=== PATIENT | female | born 1965 | race Caucasian/White ===

== ENCOUNTER → 2019-08-03 14:13 | Outpatient (BNVA) | payer MEDICARE, OTHER, SELFPAY | PROVIDERS: Family Provider Electrodiagnostic Medicine; PCP Electrodiagnostic Medicine; Visit Provider Internal Medicine Rheumatology | DX: L40.50 Arthropathic psoriasis, unspecified (principal); Z79.899 Other long term (current) drug therapy; Z11.59 Encounter for screening for other viral diseases; M46.90 Unspecified inflammatory spondylopathy, site unspecified; M85.80 Other specified disorders of bone density and structure, unspecified site; M19.90 Unspecified osteoarthritis, unspecified site; M81.0 Age-related osteoporosis without current pathological fracture; Z72.89 Other problems related to lifestyle | CPT/HCPCS: 36415; 80076; 82306; 82565; 85025; 85651; 86140; 86704; 99214 ==

== ENCOUNTER 2019-08-31 12:28 | Outpatient (CLI) | payer MEDICARE, OTHER, SELFPAY ==
--- NOTE | 2019-08-31 13:00 | XR_ITS ---
WS: [id number] PROCEDURE: XR chest 2V* [id number] CLINICAL INFORMATION: psoriatic arthritis COMPARISON: May 25, 2012 FINDINGS: Heart: Normal cardiac silhouette. Lungs: Lungs are clear. No consolidation or pleural fluid. Bones: Normal visualized bony structures. XR/XR chest 2V* [id number] IMPRESSION: Normal chest
--- NOTE | 2019-08-31 13:00 | XR_ITS ---
WS: [id number] PELVIS TECHNIQUE: 1 view(s) of the pelvis CLINICAL INFORMATION: psoriatic arthritis COMPARISON: None. 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 Mild degenerativ e arthritis both hips with joint space narrowing. Mild disc bulging lower lumbar spine. Normal SI juan nts. XR/XR pelvis 1-2V* [id number] IMPRESSION: 1. 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 2. Mild degenerative arthritis both hips with joint space narrowing. 3. Mild disc space narrowing L4-L5 and L5-S1.
--- NOTE | 2019-08-31 13:15 | XR_ITS ---
WS: [id number] HAND LEFT TECHNIQUE: 3 views of the left hand CLINICAL INFORMATION: psoriatic arthritis COMPARISON: None. FINDINGS: Normal metacarpals. Normal MCP joint. Metacarpal heads are normal in appearance. Normal PIP and DIP j oints. No evidence of acute fracture or dislocation. Radiocarpal joint: Normal. Carpal bones: Normal. XR/XR hand LT min 3V* [id number] IMPRESSION: Normal left hand.
--- NOTE | 2019-08-31 13:45 | XR_ITS ---
WS: [id number] HAND RIGHT TECHNIQUE: 3 views of the right hand CLINICAL INFORMATION: psoriatic arthritis COMPARISON: None. FINDINGS: Normal metacarpals. Normal MCP joint. Metacarpal heads are normal in appearance. Normal PIP and DIP j oints. No evidence of acute fracture or dislocation. Radiocarpal joint: Normal. Carpal bones: Normal. XR/XR hand RT min 3V* [id number] IMPRESSION: Normal right hand.
--- NOTE | 2019-08-31 14:15 | XR_ITS ---
WS: [id number] FOOT LEFT TECHNIQUE: 3 views of the left foot CLINICAL INFORMATION: psoriatic arthritis COMPARISON: None. FINDINGS: No evidence of acute fracture or dislocation. Normal tarsal metatarsal alignment. Normal calcaneus. N ormal visualized talar dome. No acute findings. Plantar calcaneal spurring. Achilles insertion enthes ophyte. XR/XR foot LT min 3V* [id number] IMPRESSION: Unremarkable left foot
--- NOTE | 2019-08-31 14:45 | XR_ITS ---
WS: [id number] FOOT RIGHT TECHNIQUE: 3 views of the right foot CLINICAL INFORMATION: psoriatic arthritis COMPARISON: None. FINDINGS: No evidence of acute fracture or dislocation. Normal tarsal metatarsal alignment. Normal calcaneus. N ormal visualized talar dome. No acute findings. Plantar and Achilles calcaneal spurring. No erosive c hanges. XR/XR foot RT min 3V* [id number] IMPRESSION: Unremarkable right foot.
--- NOTE | 2019-08-31 15:15 | XR_ITS ---
WS: [id number] SCREENING DEXA SCAN [facility] CLINICAL INFORMATION: osteoporosis COMPARISON: FINDINGS: The L1-L4 bone mineral density measures 1.013 g/cm2. This corresponds to a T score score of -1.4 and Z score of -1.3. Left femoral neck bone mineral density measures 0.796 g/cm2. This corresponds to a T score of -1.7 an d Z score of -1.5. Right femoral neck bone mineral density measures 0.767 g/cm2. This corresponds to a T score -1.9of an d Z score of -1.8. Mean femoral neck bone mineral density measures 0.781 g/cm2. This corresponds to a T score of -1.8 an d Z score of -1.6. XR/XR DEXA axial skeleton* [id number] IMPRESSION: Osteopenia Patient's FRAX calculated 10 year probability for major osteoporotic fracture i s 6.2 % and osteoporotic hip fracture is 0.5%.
== END 2019-08-31 12:29 | disposition home or self-care (01) ==
LOC: RADWPI 12:34
PROVIDERS: Family Provider Electrodiagnostic Medicine; PCP Electrodiagnostic Medicine; Visit Provider Internal Medicine Rheumatology
DX: M81.0 Age-related osteoporosis without current pathological fracture (principal); L40.50 Arthropathic psoriasis, unspecified; M85.89 Other specified disorders of bone density and structure, multiple sites; M16.0 Bilateral primary osteoarthritis of hip
CPT/HCPCS: 71046; 72170; 73130; 73630; 77080

== ENCOUNTER → 2019-12-06 13:34 | Outpatient (BNVA) | payer MEDICARE, OTHER, SELFPAY | PROVIDERS: Family Provider Electrodiagnostic Medicine; PCP Electrodiagnostic Medicine; Visit Provider Internal Medicine Rheumatology | DX: L40.50 Arthropathic psoriasis, unspecified (principal); Z79.899 Other long term (current) drug therapy; L40.0 Psoriasis vulgaris; M85.80 Other specified disorders of bone density and structure, unspecified site; M46.90 Unspecified inflammatory spondylopathy, site unspecified; M19.90 Unspecified osteoarthritis, unspecified site | CPT/HCPCS: 36415; 80076; 82565; 85025; 85651; 86140; 99214 ==

== ENCOUNTER → 2020-05-04 14:16 | Outpatient (BNVA) | payer MEDICARE, OTHER, SELFPAY | PROVIDERS: Family Provider Electrodiagnostic Medicine; PCP Electrodiagnostic Medicine; Visit Provider Internal Medicine Rheumatology | DX: L40.50 Arthropathic psoriasis, unspecified (principal); L40.0 Psoriasis vulgaris; Z79.899 Other long term (current) drug therapy; M85.80 Other specified disorders of bone density and structure, unspecified site; M46.90 Unspecified inflammatory spondylopathy, site unspecified; M47.896 Other spondylosis, lumbar region | CPT/HCPCS: 36415; 80076; 82565; 85025; 86140; 99214 ==

== ENCOUNTER → 2020-09-06 11:49 | Outpatient (BNVA) | payer MEDICARE, OTHER, SELFPAY | PROVIDERS: Family Provider Electrodiagnostic Medicine; PCP Electrodiagnostic Medicine; Visit Provider Internal Medicine Rheumatology | DX: L40.50 Arthropathic psoriasis, unspecified (principal); L40.0 Psoriasis vulgaris; Z79.899 Other long term (current) drug therapy; M46.90 Unspecified inflammatory spondylopathy, site unspecified; M15.9 Polyosteoarthritis, unspecified; M47.896 Other spondylosis, lumbar region; G47.00 Insomnia, unspecified; Z71.89 Other specified counseling; Z96.612 Presence of left artificial shoulder joint | CPT/HCPCS: 36415; 80076; 82565; 85025; 86140; 99214 ==

== ENCOUNTER → 2020-11-15 13:01 | Outpatient (BNVA) | payer MEDICARE, OTHER, SELFPAY | PROVIDERS: Family Provider Electrodiagnostic Medicine; PCP Electrodiagnostic Medicine; Visit Provider Internal Medicine Rheumatology | DX: Z79.899 Other long term (current) drug therapy (principal); L40.50 Arthropathic psoriasis, unspecified; M46.90 Unspecified inflammatory spondylopathy, site unspecified | CPT/HCPCS: 36415; 80076; 82565; 85025; 86140 ==

== ENCOUNTER → 2021-03-02 10:00 | Outpatient (BNVA) | payer MEDICARE, OTHER, SELFPAY | PROVIDERS: Family Provider Electrodiagnostic Medicine; PCP Electrodiagnostic Medicine; Visit Provider Otolaryngology | DX: L40.0 Psoriasis vulgaris (principal) | CPT/HCPCS: 87635 ==

== ENCOUNTER 2021-03-08 08:24 | Day surgery (SDC) | payer MEDICARE, OTHER, SELFPAY ==
[2021-03-07 10:26] VITALS: BMI 31.8
[2021-03-08] VITALS (10 sets, daily range): BP systolic 123–158; BP diastolic 69–98; PULSE 70–97; RESP 13–18; TEMP 36.2–36.4; O2SAT 97–100
--- NOTE | 2021-03-08 09:20 | W.PM.OPSUD ---
Surgery/Procedure H&P Update DATE OF PROCEDURE: March 08, 2021 DATE H&P PERFORMED: 02/27/21 H&P UPDATE INFORMATION: I have reviewed H&P completed within last 30 days, I have examined patient prior to procedure and No changes to prior documentation PREOP DIAGNOSIS: Left neck cyst PLANNED PROCEDURE: Operation Date: 03/08/21 10:30 Proposed Procedures p Excision Left neck Cyst 98018 R22.1(Left) - Julian Calero MD
[2021-03-08] MEDS: sodium chloride 0.9% 1,000 ML 30 ML IV (09:32)
--- NOTE | 2021-03-08 10:30 | ANES.PREANE2 ---
Pre-Anesthetic Assessment Pre-Anesthetic Assessment: Height/Weight: Height 1.6 m Weight 81.647 kg Temp Pulse Resp BP Pulse Ox 97.4 F L 83 16 158/98 98 03/08/21 09:10 03/08/21 09:10 03/08/21 09:10 03/08/21 09:10 03/08/21 09:10 Preop Diagnosis: Left neck cyst Proposed Procedure: Operation Date: 03/08/21 10:30 Proposed Procedures p Excision Left neck Cyst 14712 R22.1(Left) - Julian Calero MD Was Beta Marleni taken within 24 hours: N/A Was Clonidine taken within 24 hours: N/A Last intake: Intake Last Liquid Date 03/07/21 Last Liquid Time 22:00 Last Solid Date 03/07/21 Last Solid Time 22:00 Social: Social History: No alcohol and No tobacco Exam: Pre-Anes Outpt Exam: alert, oriented x 3, clear to auscultation bilaterally and regular rate & rhythm Airway: Submandibular: WNL Cervical ROM: WNL MP: 1 Dentition: Full History/ROS: No significant complaints Pulmonary: Pulmonary: None reported CV/HEM: CV/HEM: HTN : : None reported Hepatic: Hepatic: None reported GI: GI: None reported Metabolic: Metabolic: None reported Musc/skel: Comments: Psoriatic arthritis Osteopenia Neuropsych: Neuropsych: None reported Anesthetic Plan: ASA status: 2 Anesthesia: Anesthesia Evaluation and General Risk of > 500 ml blood loss (7ml/kg in children): No Medications/Allergies Current Medications: Current Medications Generic Name Dose Route Start Last Admin Trade Name Freq PRN Reason Stop Dose Admin Sodium Chloride 1,000 mls @ 30 ml s/hr 03/08/21 08:45 03/08/21 09:32 Sodium Chloride 0.9% IV 03/09/21 08:44 30 mls/hr .Q24H XOCHILT Administration PFSH Anesthesia PFSH: Medical History 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
--- NOTE | 2021-03-08 11:39 | SUR.OPER ---
5.1ML OF 2% LIDOCAINE CARPALS WAS USED ON THE LEFT NECK.
[2021-03-08] MEDS: neomycin-poly-bacitracin oint 28 gm 1 APPLIC TOPICAL (12:00)
--- NOTE | 2021-03-08 12:03 | P.OP_ITS ---
Operative Report Date of procedure: March 08, 2021 Pre-op Diagnosis: Left neck cyst Post-op diagnosis: same Post-op Findings: Patient with a scarred ruptured cyst and surrounding thick skin scar. Procedure Done: Excision of left neck cyst and scar with multilayer intermediate repair. Incision 5 cm x 2 cm. Specimens removed/disposition: Ruptured left neck cyst with surrounding scarred tissue. Pathology: Sent for permanent section diagnosis. Surgeon: Julian Calero Anesthesia: General and Local Estimated blood loss (mL): 10 Complications: No complications encountered. Findings: Patient has had a cyst of the left neck for years and has had treatment for it in the past. The cyst has recurred and the skin is very sc arred and thickened surrounding it. Patient wishes to have it excised to stop the recurrent infections. Condition: stable Disposition: PACU Brief History: 55-year-old female patient with a recurrent left neck cyst in spite of previous treatment. Continues to have inflammation and further rupture and drainage and causing thick scar. Patient is being brought to the operating room at this time to undergo excision of this lesion or cyst with surrounding scar with intermediate repair. The procedure its risks and complications have been explained in detail. These risks include bleeding infection numbness scarring swelling bruising recurrence need for additional treatment and more serious risk such as heart attack or stroke or not surviving the surgery. With these things understood informed consent was granted. Procedure: Description of procedure: The patient was placed on the operating table in the supine position. Adequate general endotracheal tube anesthesia was obtained. A timeout was accomplished identifying the patient date of plan procedure allergies fire risk and medications given. With all in agreement the procedure continued. The patient's left neck was cleansed with alcohol and shahab the site was noted. A total of 5.1 mL of 2% Xylocaine with 1-100,000 epinephrine was used to infiltrate the skin excision area in a fusiform pattern and down to the subcutaneous tissue deep to the cyst. Then the patient was prepped with ChloraPrep and draped in usual fashion. A marking pen was then used to outline a fusiform excision pattern measuring 5 x 2 cm. This incorporated the cyst and scar to normal skin. The cut mode of a needle tip Bovie on very low power was used to create the skin incision. Then the coagulation mode was used to cut down to the deeper subcutaneous fat layer and then in that plane the lesion with the cyst and the surrounding skin was excised. Hemostasis was attained with the cautery and bipolar cautery. Undermining was then accomplished anteriorly and posteriorly for about 2 cm in both directions. Then the subcutaneous fat layer was closed with interrupted 4-0 chromic suture. The subcutaneous layer was then closed with interrupted 4-0 chromic. Then the skin was closed with a running subcutaneous 5-0 nylon suture with 1 skin bridge for easy removal. The area was cleansed. Pressure was applied for several minutes. Then Neosporin ointment was applied followed by a large Band-Aid. Patient was then returned to anesthesia for wake-up and extubation. She tolerated the procedure well and estimated blood loss of 10 mL or less and arrived in recovery in stable condition.
--- NOTE | 2021-03-08 14:31 | ANE.PACU2 ---
Inpatient post-anesthesia follow up: Airway intact: Yes Vital signs: Temperature 97.5 F Pulse Rate 70 Respiratory Rate 16 Blood Pressure 123/69 Pulse Oximetry 97 Oxygen Delivery Me thod Room Air Oxygen Flow Rate Fraction of Inspir ed Oxygen Hydration adequate: Yes Nausea and vomiting: No Pain level: 2 Mental status: Baseline
== END 2021-03-08 13:13 | disposition home or self-care (01) ==
PROVIDERS: PCP Electrodiagnostic Medicine; Visit Provider Otolaryngology
PROC: (CPT 11426; principal; 2021-03-08 10:20)
DX: L72.0 Epidermal cyst (principal); I10 Essential (primary) hypertension; L40.50 Arthropathic psoriasis, unspecified; M81.0 Age-related osteoporosis without current pathological fracture; Z79.899 Other long term (current) drug therapy; Z82.49 Family history of ischemic heart disease and other diseases of the circulatory system; Z83.3 Family history of diabetes mellitus
CPT/HCPCS: 11426; 12042; 88307; J1100; J2405; J3010; J3490; J7030

== ENCOUNTER 2024-06-29 15:07 | Outpatient (CLI) | payer MEDICARE, OTHER, SELFPAY ==
--- NOTE | 2024-06-29 15:17 | XR_ITS ---
WS: [id number] SCREENING DEXA SCAN [facility] CLINICAL INFORMATION: postmenopausal COMPARISON: 2019 FINDINGS: The L1-L4 bone mineral density measures 0.970 g/cm2. This corresponds to a T score score of -1.8 and Z score of -0.9. Left femoral neck bone mineral density measures 0.717 g/cm2. This corresponds to a T score of -2.3 and Z score of -1.6. Right femoral neck bone mineral density measures 0.724 g/cm2. This corresponds to a T score -2.3of and Z score of -1.6. Mean femoral neck bone mineral density measures 0.721 g/cm2. This corresponds to a T score of -2.3 and Z score of -1.6. XR/XR DEXA axial skeleton* [id number] IMPRESSION: Osteopenia lumbar spine. Osteopenia femoral necks. Patient's FRAX calculated 10 year probability for major osteoporotic fracture i s 9.0% and osteoporotic hip fracture is 1.1%. Bone mineral density lumbar spine decreased -4.2% Bone mineral density femoral necks decreased -7.7%
== END 2024-06-29 15:08 | disposition home or self-care (01) ==
LOC: RAD 15:08
PROVIDERS: PCP Electrodiagnostic Medicine; Visit Provider Electrodiagnostic Medicine
DX: Z78.0 Asymptomatic menopausal state (principal); M85.89 Other specified disorders of bone density and structure, multiple sites
CPT/HCPCS: 77080

== ENCOUNTER 2024-07-20 09:03 | Outpatient (CLI) | payer MEDICARE, OTHER, SELFPAY ==
--- NOTE | 2024-07-20 09:07 | MM_ITS ---
WS: [id number] BILATERAL 3D TOMOSYNTHESIS DIGITAL SCREENING MAMMOGRAPHY WITH CAD CLINICAL INFORMATION: SCREENING HISTORY: Screening mammogram. No current complaints. COMPARISON: 2009 TECHNIQUE: Bilateral CC and MLO views. FINDINGS: Scattered fibroglandular densities bilaterally. No suspicious focal mass, asymmetry, calcifications, or architectural distortion. No evidence of malignancy. Lucent centered calcification RIGHT breast MM/MM scr BI tomosynthesis [id number] IMPRESSION: DENSITY: There are scattered areas of fibroglandular density. BI-RADS: 2 - Benign. FOLLOW UP: 1 Year Follow-up Recommend return to annual screening mammography.
== END 2024-07-20 09:04 | disposition home or self-care (01) ==
LOC: RAD 09:04
PROVIDERS: PCP Electrodiagnostic Medicine; Visit Provider Electrodiagnostic Medicine
DX: Z12.31 Encounter for screening mammogram for malignant neoplasm of breast (principal); R92.323 Mammographic fibroglandular density, bilateral breasts; R92.1 Mammographic calcification found on diagnostic imaging of breast
CPT/HCPCS: 77063; 77067